=== PATIENT | male | born 1965 | race African-American/Black ===

== ENCOUNTER 2017-01-02 | Emergency (ER) | payer OTHER ==
[~2017-01-02] VITALS: Ht 180.3 cm; Wt 125.0 kg
[~2017-01-02] MED LIST: ASPI81 PO; CHOLESTEROL MED; CYCL-36 PO; ENAL20TA81 PO; LORTA5 PO; NAPR-576 PO; PRAV20 PO
[2017-01-02 00:14] VITALS: BP 120/87; PULSE 84; RESP 18; TEMP 98.3; O2SAT 97
== END 2017-01-02 01:11 | disposition left against medical advice (07) ==
LOC: PHED
DX: R25.2 Cramp and spasm (principal); Z53.21 Procedure and treatment not carried out due to patient leaving prior to being seen by health care provider
CPT/HCPCS: 99281